=== PATIENT | female | born 1950 | race Caucasian/White ===

== ENCOUNTER 2017-01-03 05:56 | Day surgery (SDC) | payer OTHER ==
[~2017-01-03] VITALS: Ht 157.5 cm; Wt 51.3 kg
[2017-01-03] VITALS (8 sets, daily range): BP systolic 116–147; BP diastolic 67–91
--- NOTE | ~2017-01-03 | S ---
[facility] [place] [address] [place] [address] SURGICAL PATH RPT PROCEDURE Name: ORLANDO IQBAL Room #: DEP [facility].#: [id number] Admission: 01/03/17 Date of : 46 Discharge: 01/04/17 Report #: [id number] Path Case #: [id number] PATHOLOGY REPORT COLLECTION DATE: 01/03/2017 RECEIVED DATE: 01/03/2017 SUBMITTING PHYS: Dr. Trever Rodriguez OTHER PHYS: Dr. Ely Londono SPECIMEN(S) RECEIVED: A.Right inferior parathyroid adenoma B.Left thyroid lobe and isthmus * * * * * * * * * * * * FINAL DIAGNOSIS: A. "Right inferior parathyroid adenoma," parathyroidectomy: - Hypercellular parathyroid gland weighing 140 mg. (see comment) B. "Left thyroid lobe and isthmus," thyroid lobectomy: - Thyroid gland with nodular hyperplasia with a dominant nodule measuring 2.0 cm grossly and focal fibrosis and dystrophic calcifications. - Chronic thyroiditis. (see comment) COMMENT: Within specimen A, the findings are compatible with parathyroid adenoma. Correlation with clinical history, additional laboratory, and radiographic findings is required. Within specimen B, the findings are consistent with a dominant nodule of nodular hyperplasia. A construction sales representative slide of Part B (block B7) is co-reviewed with Dr. Marysol Mota. (CLYDEW:; d/t: 01/06/17) PATHOLOGIST: Kiran Morris M.D. REPORT ELECTRONICALLY SIGNED BY: Kiran Morris M.D. DATE/TIME: 01/07/2017 09:48 * * * * * * * * * * * * GROSS PATHOLOGY: A. The specimen is received fresh labeled "Olga Iqbal - #1 right inferior parathyroid adenoma" consists of a piece of mayer tissue measuring 0.4 x 0.3 x 0.2 cm. The specimen weighed 140 mg and the specimen is bisected and frozen. There were 3 frozen section slides. B. Specimen received fresh labeled "Olga Iqbal - #2 left thyroid lobe and isthmus" consists of a lobe of thyroid that weighs 15 grams and measures 6 x 2.5 x 1.5 cm. It is oriented by Dr. Trever Rodriguez as superior, inferior, medial and lateral. The specimen is [address] [address] SURGICAL PATH RPT PROCEDURE Name: ORLANDO IQBAL [id number] Admission: 01/03/17 Date of : 46 Discharge: 01/04/17 Report #: [id number] Path Case #: [id number] inked with green ink. On serial sectioning, there is a well-circumscribed nodule that measures almost 2 x 1.5 x 1.5 cm. This nodule is present at the superior pole. Two touch preps and one frozen is done. There are two touch prep slides and one frozen section slide. The specimen is frozen and submitted in cassette B1. The frozen section is submitted in B1. The rest of the thyroid is submitted in cassettes B2-B8. The entire specimen is submitted. The specimen is inked with green ink, and the isthmus is submitted in B8. ([facility]; d/t: 01/03/2017) FROZEN SECTION DIAGNOSIS: (Kiran Morris M.D.) FSA1, parathyroid "right inferior parathyroid adenoma": - Nodular cellular parathyroid. FSB1 and touch prep, thyroid "left thyroid and isthmus", lobectomy: - Follicular lesion with focal areas of fibrosis and calcification. These findings were discussed with Dr. Trever Rodriguez, and a written report was placed on the patient's chart. ([facility]:khari; d/t: 01/03/2017) Testing performed by [facility] at [facility] [address] [place] [address] CLINICAL HISTORY: Hyperparathyroidism. INITIAL CPT CODE(S): A; 54700, 22378 B; 89698, 35574 Professional services performed by [facility] at [facility] [address] [place] [address] Technical services performed by [facility] at [address] [place] [address], [address], [place] [address]. [facility] [address] [place] [address] PHONE: [phone] DIRECTOR: Jose Luis Mejias M.D. * * * END OF REPORT * * *
--- NOTE | ~2017-01-03 | O ---
[facility] [place] [address] [address] [place] [address] OPERATIVE REPORT Name: ORLANDO IQBAL Room #: 150-4 [facility].#: [id number] Admission: 01/03/17 Attend Phys: Trever Rodriguez MD Discharge: Date of : 46 Report #: [id number] THIS REPORT FOR: //name// CC: Trever Huffman MD DATE OF SERVICE: 01/03/2017 PREOPERATIVE DIAGNOSES: 1. Hyperparathyroidism with suspected right inferior parathyroid adenoma. 2. Left thyroid mass. POSTOPERATIVE DIAGNOSES: 1. Hyperparathyroidism with right inferior parathyroid adenoma. 2. Left thyroid mass. OPERATION: 1. Gamma guided parathyroidectomy with intraoperative PTH monitoring. 2. Intraoperative nerve monitoring (NIMs). 3. Left thyroid lobectomy and isthmusectomy. SURGEON: Trever Rodriguez MD. FREEZER WORKER: MIYA Fernandez and MIYA Cantu. ANESTHESIA: General. DESCRIPTION OF PROCEDURE: The patient was taken to nuclear medicine and the radiologist injected for the gamma guided procedure. The patient was brought to the operating room for a general endotracheal anesthesia using the NIMs endotracheal tube for nerve monitoring during the procedure. The patient was in the supine position with both arms tucked and protected. The upper chest and neck were widely prepped with ChloraPrep solution. Sterile drapes were applied. A short transverse cervical collar incision was made along the skin crease. I had already performed gamma probe interrogation of the neck and I confirmed the presence of a persistent hotspot on the right inferior location as expected. The incision was carried down through the skin and platysma. The skin flaps were developed superiorly and inferiorly. The fascia was divided in the midline and the strap muscles were retracted laterally. The right thyroid lobe looked and felt normal. There was no evidence of lymphadenopathy on either side of the neck. The right lobe was mobilized. The inferior thyroid artery and recurrent laryngeal nerve were identified and protected from harm. I utilized the NIMs device to verify location and function of the recurrent nerve on both sides of the neck, both during and after the dissection. We found a normal right [facility] [address] [place] [address] OPERATIVE REPORT Name: FARIDAORLANDO L Room #: 150-4 [facility].#: [id number] Admission: 01/03/17 Attend Phys: Trever Rodriguez MD Discharge: Date of : 46 Report #: [id number] superior parathyroid gland. We found a right inferior parathyroid adenoma in the expected location and it had radioactivity focally as expected. The right inferior parathyroid adenoma was carefully dissected, controlling the blood supply using Harmonic scalpel. The specimen was given to the pathologist who found a parathyroid adenoma, which weighed 140 mg and was consistent with a parathyroid adenoma. The 10-minute post-resection PTH level was 23, which was well below the preop PTH level of 105 in the holding area. Hemostasis was excellent on the right side of the neck. Next, the left thyroid lobe was mobilized, controlling the middle thyroid veins using Harmonic scalpel. The left inferior thyroid artery and recurrent laryngeal nerve were identified and protected from harm. Again, I used the NIMs device to verify location and function of the nerve both during and after dissection. There was a moderately large left thyroid mass in the upper pole, which was carefully mobilized along with the left lobe. We found 2 normal parathyroid glands on the left side which were left alone. The isthmus was divided just to the right of the midline and dissected off of the trachea. The left thyroid lobe was resected, controlling the blood supply using Harmonic scalpel. The superior pole was mobilized and controlled using Harmonic scalpel with care being taken to avoid injury to the external branch of the superior laryngeal nerve. The left lobe and isthmus were given to the pathologist who performed frozen section, which revealed a benign appearing follicular lesion. She did not see any evidence of cancer on frozen section. Hemostasis was carefully obtained on both sides of the neck. The sponge, instrument and needle counts were reported as correct. The incision was closed using running 3-0 Vicryl for the midline fascia, interrupted 3-0 Vicryl for the platysma, and running 4-0 PDS for the subcuticular layer. It should be noted that I found 2 normal parathyroid glands on the left side. Sterile dressings were applied and the patient was taken to recovery in satisfactory condition. Estimated blood loss was less than 20 mL. By: [id number] Trever Rodriguez MD /chel
--- NOTE | ~2017-01-03 | EKG ---
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
[~2017-01-03 05:56] MED LIST: COSOPT EYE DROPS5 ML OPHTHALMIC; FIBER GUMMIES1 EACH PO; LUMIGAN2.5 M1 OP; PROBIOTIC1 EAC1 PO; VITAMIN D31000 UNI2 PO
[2017-01-03 07:31] LABS: HEMATOCRIT 38.1 % (37.0-47.0); HEMOGLOBIN 13.2 gm/dL (12.0-15.0); MCH 33.3 pg (26.0-34.0); MCHC 34.6 g/dL (28.0-37.0); MCV 96.3 fL (80.0-100.0); RBC 3.96 mil/uL (4.20-5.00); RDW 12.8 % (10.5-14.5); WBC 5.3 thou/uL (4.0-11.0)
[2017-01-03 07:45] LABS: APTT 28.1 Seconds (24.5-32.8); INR 1.1; PROTIME 11.2 Seconds (9.3-11.4)
[2017-01-03 07:48] LABS: CALCIUM 9.4 mg/dL (8.5-10.1); CREATININE 0.9 mg/dL (0.6-1.0); POTASSIUM 3.8 mmol/L (3.5-5.1)
[2017-01-03 07:51] LABS: ALBUMIN 3.6 g/dL (3.4-5.0); TOTAL BILIRUBIN 1.1 mg/dL (<0.1-1.0); TOTAL PROTEIN 6.7 g/dL (6.4-8.2)
[2017-01-03 09:29] LABS: CALCIUM 9.4 mg/dL (8.5-10.1); CREATININE 0.9 mg/dL (0.6-1.0)
[2017-01-03 09:39] LABS: PHOSPHORUS 4.1 mg/dL (2.5-4.9)
[2017-01-04 08:39] VITALS: BP 130/59
[2017-01-04] MEDS ORDERED: PERCOCET PO (13:03)
[2017-01-04 13:16] VITALS: BP 130/59
== END 2017-01-04 13:30 ==
LOC: OR 05:56 → TBA 05:56 → OR 12:47 → PRE 13:49 → EDSTATUS 13:51 → 5S 15:25 → OR 01-04 13:30
PROVIDERS: Specialist
DX: E21.3 Hyperparathyroidism, unspecified (principal); E04.9 Nontoxic goiter, unspecified; D35.1 Benign neoplasm of parathyroid gland
CPT/HCPCS: 50010; 50101; 50386; 50403; 52190; 52220; 56524; 56526; 56639; 62110; 62900; 70005

== ENCOUNTER → 2019-04-27 | Outpatient (CLI) | payer OTHER ==
[~2019-04-27] VITALS: Ht 157.5 cm; Wt 53.5 kg
[~2019-04-27] MED LIST changes: +ARIMIDEX1 MG PO; +BRIMONIDINE 0.110 ML OPHTHALMIC; +IBUPROFEN 200200 M1 PO; +IBUPROFEN 400400 M2 PO; +PERCOCET PO; +TUMS PO
[2019-04-27 10:48] VITALS: BP 135/79
--- NOTE | 2019-04-27 11:15 | NUR ---
Pain Clinic Assessment: 1. History of Osteoarthritis: BACK History of Rheumatoid Arthritis: Not Applicable 2. Height: 5 ft. 2 in. 157.5 cm. Weight: 118.0 lb. oz. 53.524 kg. Patient's BMI: 21.6 3. Vital Signs: BP: 135/79 Pulse: 65 Resp: 16 Temp: 02 Sat: 100 ECG Mon: 4. Pain Intensity: 1-2 5. Fall Risk: Dizziness: N Needs help standing or walking: N Fallen in the last 3 months: N Fall risk comments: 6. Patient on Blood Thinner: None 7. History of Hypertension: N 8. Opioid Therapy greater than 6 weeks: N Opiate Contract Signed: 9. Risk Assessment Tool Provided: LOW RISK 0/3 10. Functional Assessment Tool: 11. Recreational Drug Use: Never Drug Type: Tobacco Use: Never Smoker Tobacco Type: Amount or Packs/day: How Many Years: Alcohol Use: Yes Frequency: Daily Quant: 1.5
--- NOTE | 2019-04-28 08:14 | HPC ---
[facility] [place] [address] PAIN MANAGEMENT CONSULTATION Name: ORLANDO IQBAL Room #: REG Martha [facility]ala.#: [id number] Admission: 04/27/19 Attend Phys: Mo Waller DO Discharge: Date of : 46 Report #: [id number] THIS REPORT FOR: //name// CC: ELEAZAR Huffman REFERRING PHYSICIAN: Dr. Eleazar Lugo with Neurosurgery. HISTORY OF PRESENT ILLNESS: As you know, the patient is a 68-year-old female who reports longstanding history of low back pain and mainly left lower extremity pain with paresthesias. The patient states the pain began somewhere in 2016. She denies specific injury or trauma that may have led to symptom occurrence. She has sought evaluation from her primary care physician who then referred the patient to Orthopedics with concern of left hip dysfunction. The patient apparently was ruled out from a left hip pathology and the physician at that clinic advised the patient that she is probably suffering from lumbar radiculopathy. The patient was then sent to see pain management who ordered a recent MRI, which showed changes significant enough that she was then referred to Neurosurgery. Neurosurgery saw the patient in regards to lumbar radiculopathy, where they discussed the severe central canal stenosis at L4-L5 level and the changes therein. She was advised to discuss treatment options with us. Surgery was indicating that she would be an excellent candidate for decompressive laminectomy with fusion. She has been referred to our clinic to discuss treatment options from a more conservative standpoint. The patient indicates pain is intermittent today, describes the pain as cramping, aching, pulling, gnawing, numbness and tingling. Places current pain score 3-4/10, daily average at 5-8/10, worst pain has been is 10+/10. The patient states pain is exacerbated with walking, standing or sitting any length of time. Pain is improved with "leaning over", sitting, lying down and physical therapy. She is currently in physical therapy and does note improvement in symptoms. She indicates no specific injury or trauma that may have led to symptom occurrence. The pain began in 2015. Originally was more of a nuisance, but now has become debilitating. She has been referred to our service to discuss treatment options for lumbar radiculopathy secondary to severe central canal stenosis at the L4-L5 level. PAST MEDICAL HISTORY: 1. Scarlet fever. 2. Degenerative joint disease. 3. Osteoarthritis. 4. Breast cancer. 5. Hypothyroidism. PAST SURGICAL HISTORY: 1. Left hemithyroidectomy and removal of [place] [address] PAIN MANAGEMENT CONSULTATION Name: ORLANDO IQBAL Room #: REG DENIS Huffman#: [id number] Admission: 04/27/19 Attend Phys: Mo Waller DO Discharge: Date of : 46 Report #: [id number] 2. Trabeculoplasty, bilateral eyes. 3. Placement of Mini Express shunt in the left eye. 4. Right breast lumpectomy. SOCIAL HISTORY: The patient denies tobacco, IV or illicit drug use. Admits to 1.5 alcohol beverages per day. 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 She is retired, but continues to do her some work. She has been out of work force for 2 years officially. She is not derrick worker's compensation nor is she trying to obtain disability benefits. She is not in litigation in regards to pain. ALLERGIES: NO KNOWN DRUG ALLERGIES. CURRENT MEDICATIONS: Arimidex 1 mg once a day, calcium carbonate 1 tab per day, ibuprofen 400 mg 3 times a day, probiotic 1 tab per day, vitamin D3 1000 units per day, Lumigan one drop each eye per day, Cosopt 1 drop each eye per day. IMAGING: MRI lumbar spine obtained 11/12/2018 shows T12-L1, L1-L2, L2-L3 with moderate degenerative disk disease, [id number] facet arthropathy. No significant central canal neural foraminal stenosis. L3-L4, moderate broad-based disk bulge hypertrophy, ligamentum flavum, moderate spinal canal stenosis with canal measuring only 7 mm, moderate narrowing of the lateral recesses, mild bilateral neural foraminal narrowing. L4-L5 severe facet arthropathy, worse on the left, moderate broad-based disk bulge, hypertrophy of the ligamentum flavum, central canal narrowed to 4 mm. Complete effacement of the ventral thecal sac and posterior thecal sac, moderate narrowing of the right lateral recess. Severe left neural foraminal narrowing, L5-S1, moderate degenerative changes, [id number] facet arthropathy, mild broad-based disk bulge, no central canal, mild neural foraminal stenosis. PHYSICAL EXAMINATION: VITAL SIGNS: Blood pressure 135/79, pulse is 65, respiratory rate 16 and unlabored. She is 100% on room air. Height 5 feet 2 inches tall, weight 118 pounds, BMI calculated 21.6. GENERAL: Well-developed, well-nourished, well-hydrated 68-year-old female, appears her stated age. Current pain score 1-2/10. HEENT: Normocephalic, atraumatic. Pupils equal, round, reactive to light. Extraocular muscles are intact. Sclerae nonicteric without injection. NEUROLOGIC: Cranial nerves 2-12 grossly intact. Speech fluent. The patient deemed is a good historian. LUNGS: Clear, no wheeze, rhonchi or rales. CARDIOVASCULAR: Regular. No appreciable gallop, no rub. ABDOMEN: Soft, nontender, nondistended, normoactive bowel sounds. EXTREMITIES: Show no clubbing, no cyanosis, and no edema. MUSCULOSKELETAL: Lower extremity strength equal and symmetrical 5/5. Slight giveaway strength noted with hip flexion, knee extension on the left when [facility] [address] [place] [address] PAIN MANAGEMENT CONSULTATION Name: ORLANDO IQBAL Room #: [facility].#: [id number] Admission: 04/27/19 Attend Phys: Mo Waller DO Discharge: Date of : 46 Report #: [id number] compared to the right due to increasing overall pain. Muscle tone is equal and symmetrical 5/5. Reflexes are equal and symmetrical at the patella and Achilles, 2+/4. Tactile sensation is normal from L1 through S2 dermatomes. Seated straight leg raising negative. Supine straight leg raising positive on the left. Prashant's test negative. Gait is tandem. ASSESSMENT: 1. Symptomatic lumbar radiculopathy. 2. Severe spinal stenosis of lumbar spine. 3. Displacement of lumbar intervertebral disk with radiculopathy. 4. Lumbosacral spondylosis with radiculopathy. 5. Neural foraminal stenosis. 6. Facet arthropathy of the lumbar spine. 7. Lumbar degeneration. 8. Chronic intractable pain. PLAN: 1. The patient has been referred to our service to discuss treatment options for lumbar radicular symptoms secondary to the severe spinal stenosis noted at the L4-L5 level. The patient was seen at [facility] where she was advised surgical options may be necessary given the extent of spinal stenosis at the L4-L5 level with reduction of the canal to 4 mm. The patient had requested conservative treatment options initially and the patient was then subsequently referred to our clinic. She has been referred to our clinic to discuss the more conservative treatment options available for lumbar radicular symptoms. The following was discussed with the patient today. 2. We discussed physical therapy, stretching exercise, core strengthening and any type of traction or distraction techniques that may be beneficial. We discussed medication management using neuropathic pain medications and consistent anti-inflammatory medication. We discussed epidural injections for which the patient was referred to our clinic. We also discussed spinal cord stimulator therapy and ultimately surgical decompression and fusion. After reviewing the risks and benefits of all the proposed treatment options, the patient chose to consider a lumbar epidural injection under fluoroscopic guidance. 3. The patient was advised third alliance party payer restrictions require that authorization be obtained before the patient could undergo a lumbar epidural injection. Authorization could take anywhere from 4-7 working days. We will contact the patient once we have this authorization available, so she could undergo the injection. She is requesting that the injection be provided on 05/11/2019 or 05/12/2019. She has time off at that point to recover from the procedure. We will get the authorization and schedule that for free of the 05/11/2019 or 05/12/2019 if possible. 4. We did discuss possibility of adding medication changes today. The patient will consider these options, but does not wish to make any medication changes at this visit. [facility] [address] [place] [address] PAIN MANAGEMENT CONSULTATION Name: ORLANDO IQBAL Room #: REG DENIS Huffman#: [id number] Admission: 04/27/19 Attend Phys: Mo Waller DO Discharge: Date of : 46 Report #: [id number] 5. We will see the patient back in followup visit once we have achieved authorization to undergo a lumbar epidural injection. We will contact the patient once this authorization has been obtained and confirmed the date. She wishes to undergo this procedure whether this be the 05/11/2019 or 05/12/2019. 6. I wish to thank nurse practitioner, Tracey Lugo for the opportunity to see this patient in consultation. We will keep you apprised of her response to treatment as we address her lumbar radicular symptoms secondary to severe spinal stenosis. Again, we wish to thank nurse practitioner, Parish for the opportunity to see the patient in consultation. <ELECTRONICALLY SIGNED> By: Mo Waller DO 04/28/19 0814 1251 0123 Mo Waller DO /nt
== END ==
LOC: PAIN 06:54
DX: M47.26 Other spondylosis with radiculopathy, lumbar region (principal); E03.9 Hypothyroidism, unspecified; M48.061 Spinal stenosis, lumbar region without neurogenic claudication; M51.16 Intervertebral disc disorders with radiculopathy, lumbar region; M12.88 Other specific arthropathies, not elsewhere classified, other specified site; G89.4 Chronic pain syndrome; Z79.899 Other long term (current) drug therapy

== ENCOUNTER → 2019-05-11 | Outpatient (CLI) | payer OTHER ==
[~2019-05-11] VITALS: Ht 157.5 cm; Wt 55.4 kg
--- NOTE | ~2019-05-11 | HPC ---
[facility] [address] [place] [address] PAIN MANAGEMENT CONSULTATION Name: ORLANDO IQBAL Room #: REG [facility] Lucy.#: [id number] Admission: 05/11/19 Attend Phys: Mo Waller DO Discharge: Date of : 46 Report #: [id number] THIS REPORT FOR: //name// CC: Mo Huffman DATE OF SERVICE: 05/11/2019 REFERRING PHYSICIAN: Royce Terrazas MD CHIEF COMPLAINT: Low back pain, left lower extremity pain with paresthesias. HISTORY OF PRESENT ILLNESS: As you know, the patient is a 69-year-old female who has returned today in followup visit having received preauthorization to undergo a lumbar epidural injection under fluoroscopic guidance per the request of the referring nurse practitioner, Subhash Lugo with [facility]. She returns today to undergo this epidural injection in hopes of improving pain. She was diagnosed at our visit of 04/27/2019 with symptomatic lumbar radiculopathy secondary to severe and progressively worsening spinal stenosis. The spinal stenosis was noted to be multifactorial due to facet changes and degenerative disk changes. She was established on today's appointment to undergo the first in a series of lumbar epidural injections per the request of the Neurosurgery team in hopes of improving pain. She does not have a definitive date for surgery, but has begun that discussion. She returns to undergo lumbar epidural injection under fluoroscopic guidance. ALLERGIES: No known drug allergies. CURRENT MEDICATIONS: Arimidex, calcium carbonate, ibuprofen, probiotic, vitamin D3, Lumigan, Cosopt. SOCIAL HISTORY: The patient denies tobacco, IV or illicit drug use. Admits to 1.5 alcohol beverages per day. She is unaccompanied today. IMAGING: No new imaging available. PHYSICAL EXAMINATION: VITAL SIGNS: Blood pressure 136/87, pulse 82, respiratory rate 14 and unlabored. The patient is 100% on room air. Height 5 feet 2 inches tall, weight 122.2 pounds, BMI calculated 22.3. GENERAL: Well-developed, well-nourished, well-hydrated 69-year-old female, appearing stated age, placing current pain score at 4-5/10. HEENT: Normocephalic, atraumatic. Pupils equal, round, reactive to light. EXTREMITIES: Show no clubbing, no cyanosis, and no edema. MUSCULOSKELETAL: Lower extremity strength equal and symmetrical again today, [facility] [address] [place] [address] PAIN MANAGEMENT CONSULTATION Name: ORLANDO IQBAL Room #: REG [facility]#: [id number] Admission: 05/11/19 Attend Phys: Mo Waller DO Discharge: Date of : 46 Report #: [id number] /[id number]. Slight giveaway strength noted with hip flexion, knee extension on the left. Seated straight leg raising positive on the left. Supine straight leg raising positive on the left. NERY'S test is negative. Gait appears tandem. ASSESSMENT: 1. Lumbar radiculopathy. 2. Severe central canal stenosis of the lumbar spine. 3. Displacement of lumbar intervertebral disk with radiculopathy. 4. Lumbosacral spondylosis with radiculopathy. 5. Neuroforaminal stenosis of lumbar spine. 6. Facet arthropathy of the lumbar spine. 7. Lumbar degeneration. 8. Chronic intractable pain. PLAN: 1. The patient has returned today in followup visit having received authorization to undergo the first in a series of lumbar epidural injections under fluoroscopic guidance. We have advised the patient of the risks and the benefits of a lumbar epidural injection. These risks include but are not necessarily limited to bleeding, bruising, infection, worsening pain, no relief of pain, also risk of temporary or permanent muscle weakness, temporary or permanent nerve damage, possible paralysis, post-dural puncture headache and . The patient states she understood and wished to proceed. 2. No medication changes made at today's visit. The patient will continue current medical therapy as previously prescribed. 3. We will see the patient back in followup visit on an as needed basis for possible next in the series of lumbar epidural injections under fluoroscopic guidance. I did advise the patient upon our return visit, we will discuss the efficacy of today's procedure. If it is recommended that the patient move on with the next in the series of epidural injections, we will then begin that prior authorization process. We have received authorization for 1 epidural injection to be performed today. DESCRIPTION OF PROCEDURE: L5-S1 left parasagittal epidural steroid injection under fluoroscopic guidance. This is the first procedure of the first series that the patient is undergoing. After obtaining written consent, the patient was taken back to the fluoroscopy suite, placed in a prone position with pillow under the abdomen to decrease lumbar lordosis. The skin overlying the lumbosacral area was then prepped and draped in aseptic fashion. The L5-S1 vertebral interspace was then identified by AP fluoroscopy. The skin and subcutaneous tissue overlying the target site of injection was anesthetized with 3 mL 1% lidocaine. A 20-gauge 3-1/2-inch Tuohy needle was then advanced under fluoroscopic guidance [address] [address] PAIN MANAGEMENT CONSULTATION Name: ORLANDO IQBAL Room #: REG [facility]#: [id number] Admission: 05/11/19 Attend Phys: Mo Waller DO Discharge: Date of : 48 Report #: [id number] towards the epidural space using a left parasagittal approach. The epidural space was identified using loss of resistance to air technique. After negative aspiration for heme or cerebrospinal fluid, a total of 1 mL of Omnipaque was injected. A lumbar epidurogram was confirmed using both AP and lateral fluoroscopy. After negative aspiration for heme or cerebrospinal fluid, 5 mL of a solution containing 2 mL of 40 mg/mL, 80 mg total triamcinolone, and 3 mL of lidocaine 1% was injected in increments. Contrast spread was noted post-epidural space. The needle was then retracted approximately half way and needle tract flushed with 1 mL of 1% lidocaine. Needle was then removed. There were no apparent sensory or motor deficits in the lower extremity following the procedure. A sterile bandage was placed over the injection site. The heart rate, pulse, oximetry and blood pressure were continuously monitored after the procedure. There were no apparent complications. The patient tolerated the procedure well and was carefully escorted to the recovery room in stable condition. There were no apparent complications. After meeting discharge criteria, the patient was then discharged home. By: [id number] Mo Waller DO /nt
[2019-05-11 13:01] VITALS: BP 136/87
--- NOTE | 2019-05-11 13:09 | NUR ---
Pain Clinic Assessment: 1. History of Osteoarthritis: BACK History of Rheumatoid Arthritis: Not Applicable 2. Height: 5 ft. 2 in. 157.5 cm. Weight: 122.2 lb. oz. 55.429 kg. Patient's BMI: 22.3 3. Vital Signs: BP: 136/87 Pulse: 82 Resp: 14 Temp: 02 Sat: 10 ECG Mon: 4. Pain Intensity: 4-5 5. Fall Risk: Dizziness: N Needs help standing or walking: N Fallen in the last 3 months: N Fall risk comments: 6. Patient on Blood Thinner: None 7. History of Hypertension: N 8. Opioid Therapy greater than 6 weeks: N Opiate Contract Signed: 9. Risk Assessment Tool Provided: LOW RISK 0/3 10. Functional Assessment Tool: 11. Recreational Drug Use: Never Drug Type: Tobacco Use: Never Smoker Tobacco Type: Amount or Packs/day: How Many Years: Alcohol Use: Yes Frequency: Daily Quant: 1-2
== END | disposition home or self-care (01) ==
LOC: PAIN 06:56
DX: M51.16 Intervertebral disc disorders with radiculopathy, lumbar region (principal); M47.27 Other spondylosis with radiculopathy, lumbosacral region; M48.061 Spinal stenosis, lumbar region without neurogenic claudication; M47.26 Other spondylosis with radiculopathy, lumbar region; G89.29 Other chronic pain; Z79.899 Other long term (current) drug therapy

== ENCOUNTER → 2019-06-23 | Outpatient (CLI) | payer OTHER ==
[~2019-06-23] VITALS: Ht 157.5 cm; Wt 53.8 kg
[~2019-06-23] MED LIST changes: +MEDROLDOSEPACK PO; +ULTRAM 50MG TAB50 MG PO
[2019-06-23 11:07] VITALS: BP 138/87
--- NOTE | 2019-06-23 11:22 | NUR ---
Pain Clinic Assessment: 1. History of Osteoarthritis: BACK History of Rheumatoid Arthritis: Not Applicable 2. Height: 5 ft. 2 in. 157.5 cm. Weight: 118.6 lb. oz. 53.796 kg. Patient's BMI: 21.7 3. Vital Signs: BP: 138/87 Pulse: 75 Resp: 14 Temp: 02 Sat: 100 ECG Mon: 4. Pain Intensity: 0 5. Fall Risk: Dizziness: N Needs help standing or walking: N Fallen in the last 3 months: N Fall risk comments: 6. Patient on Blood Thinner: None 7. History of Hypertension: N 8. Opioid Therapy greater than 6 weeks: N Opiate Contract Signed: 9. Risk Assessment Tool Provided: LOW RISK 0 10. Functional Assessment Tool: 11. Recreational Drug Use: Never Drug Type: Tobacco Use: Never Smoker Tobacco Type: Amount or Packs/day: How Many Years: Alcohol Use: Yes Frequency: Quant:
--- NOTE | 2019-07-06 07:57 | HPC ---
[facility] [address] [address] PAIN MANAGEMENT CONSULTATION Name: ORLANDO IQBAL Room #: REG [facility].#: [id number] Admission: 06/23/19 Attend Phys: Mo Waller DO Discharge: Date of : 46 Report #: [id number] THIS REPORT FOR: //name// CC: BERENICE Huffman DATE OF SERVICE: 06/23/2019 CHIEF COMPLAINT: Low back pain, left lower extremity pain with paresthesias. HISTORY OF PRESENT ILLNESS: As you know, the patient is a 69-year-old female who returns today in followup visit to begin the prior authorization process to undergo next in the series of lumbar epidural injections under fluoroscopic guidance. She is also requesting adjustments in medication management as she is planning a trip to [place] in the next couple of weeks. She is concerned at this point that her pain may return, wishing to address the potential recurrence of symptoms with an epidural injection and medication management. She denies new injury or trauma that may have caused continuation of pain. ALLERGIES: No known drug allergies. CURRENT MEDICATIONS: Arimidex, calcium carbonate, ibuprofen, probiotics, vitamin D3, Lumigan and Cosopt. SOCIAL HISTORY: The patient denies tobacco, IV or illicit drug use. Admits to one and half alcohol beverages per day. She is unaccompanied at today's visit. IMAGING: No new imaging available. PHYSICAL EXAMINATION: VITAL SIGNS: Blood pressure 138/87, pulse is 75, respiratory rate 14 and unlabored. The patient is 100% on room air. Height 5 feet 2 inches tall, weight 118.6 pounds, BMI calculated 21.7. GENERAL: Well-developed, well-nourished, well-hydrated 69-year-old female, appearing stated age, pain is rated today 0/10. HEENT: Normocephalic, atraumatic. Pupils equal, round, reactive to light. EXTREMITIES: Show no clubbing, no cyanosis, no edema. MUSCULOSKELETAL: Strength in the lower extremities, equal and symmetrical 5/5. There is no giveaway strength noted with any of the maneuvers today. Seated straight leg raising is negative. Supine straight leg raising positive on the left. Prashant's test is negative. Gait appears tandem and normal. Stance normal. ASSESSMENT: 1. Symptomatic lumbar radiculopathy. [address] [address] PAIN MANAGEMENT CONSULTATION Name: ORLANDO IQBAL Room #: REG DENIS Huffman#: [id number] Admission: 06/23/19 Attend Phys: Mo Waller DO Discharge: Date of : 46 Report #: [id number] 2. Severe central canal stenosis of lumbar spine. 3. Displacement of lumbar intervertebral disk with radiculopathy. 4. Lumbosacral spondylosis with radiculopathy. 5. Neural foraminal stenosis of lumbar spine. 6. Facet arthropathy of the lumbar spine. 7. Lumbar degeneration. 8. Chronic intractable pain. PLAN: 1. The patient returns today in followup visit having noted good benefit with previous injection. She reports injection has given 100% improvement in overall pain that is ongoing. She has plans for a trip to [place] in the next couple of weeks and is requesting medications to be provided in case her symptoms do return. We have agreed to provide the patient with adjustments in medications for this trip with the understanding that they will be used only as necessary. She is agreeable with that plan. 2. We have provided the patient with a prescription of Medrol Dosepak. She would initiate the pack as directed. If her pain intensifies to a level of intolerable, she is not to utilize the medication prophylactically. She was given this Medrol Dosepak for pain control while on her trip. Prescription was provided to the patient in written form. 3. The patient was provided a prescription of tramadol 50 mg dose 1 tab q.i.d. p.r.n. pain. I have given the patient #60 tablets. The patient was advised to watch for side effects of sleepiness, disorientation, confusion, mental slowing and constipation with its use. She will only use this medication on an as needed basis. 4. We will begin the authorization process for the patient to have next in the series of lumbar epidural injections. We are pleased to see the patient has done well with the initial injection, but we will be available to see her back to undergo the next in the series if necessary. She has done very well with that initial epidural injection. We are hopeful this will be an ongoing improvement in symptoms, but will be available to see her back for the next in the series of epidural injections. <ELECTRONICALLY SIGNED> By: Mo Waller DO 07/06/19 0757 [id number] Mo Waller DO /nt
== END | disposition home or self-care (01) ==
LOC: PAIN 07:04
DX: M54.5 Low back pain (principal); M51.16 Intervertebral disc disorders with radiculopathy, lumbar region; M47.27 Other spondylosis with radiculopathy, lumbosacral region; M48.061 Spinal stenosis, lumbar region without neurogenic claudication; M47.26 Other spondylosis with radiculopathy, lumbar region; G89.29 Other chronic pain

== ENCOUNTER → 2019-10-13 | Outpatient (CLI) | payer OTHER ==
[~2019-10-13] VITALS: Ht 157.5 cm; Wt 55.4 kg
[~2019-10-13] MED LIST changes: +IBUPROFEN 400400 M1 PO; +OYSTER SHELL C500 MG PO; -TUMS PO
[2019-10-13 12:32] VITALS: BP 123/76
--- NOTE | 2019-10-13 12:45 | NUR ---
Pain Clinic Assessment: 1. History of Osteoarthritis: BACK History of Rheumatoid Arthritis: Not Applicable 2. Height: 5 ft. 2 in. 157.5 cm. Weight: 122.2 lb. oz. 55.429 kg. Patient's BMI: 22.3 3. Vital Signs: BP: 123/76 Pulse: 70 Resp: 14 Temp: 02 Sat: 100 ECG Mon: 4. Pain Intensity: 5-7 5. Fall Risk: Dizziness: N Needs help standing or walking: N Fallen in the last 3 months: N Fall risk comments: 6. Patient on Blood Thinner: None 7. History of Hypertension: N 8. Opioid Therapy greater than 6 weeks: N Opiate Contract Signed: 9. Risk Assessment Tool Provided: LOW RISK 0 10. Functional Assessment Tool: 11. Recreational Drug Use: Never Drug Type: Tobacco Use: Never Smoker Tobacco Type: Amount or Packs/day: How Many Years: Alcohol Use: Yes Frequency: Quant:
--- NOTE | 2019-10-15 07:46 | HPC ---
[facility] [address] [place] [address] PAIN MANAGEMENT CONSULTATION Name: ORLANDO IQBAL [id number] Admission: 10/13/19 Attend Phys: Mo Waller DO Discharge: Date of : 46 Report #: [id number] THIS REPORT FOR: //name// CC: BERENICE Huffman DATE OF SERVICE: 10/13/2019 REFERRING PHYSICIAN: Berenice Terrazas MD CHIEF COMPLAINT: Low back pain, left lower extremity pain and paresthesias. HISTORY OF PRESENT ILLNESS: As you know, the patient is a very pleasant 69-year-old female who has returned today in followup visit to undergo a lumbar epidural injection under fluoroscopic guidance. The patient places current pain score 5-7/10. She has returned from her trip to [place] and has been experiencing increasing pain. She denies any specific injury or trauma. She describes the pain as chronic in nature, aching, gnawing, sharp, numbness and tingling when describing the symptoms themselves. She states that walking and standing exacerbate symptoms, medications and leaning over, sitting and lying down tends to improve pain. The patient has returned today in followup visit to undergo a lumbar epidural injection under fluoroscopic guidance in hopes of improving lumbar radicular symptoms. ALLERGIES: No known drug allergies. CURRENT MEDICATIONS: Ibuprofen 400 mg every 6 hours, Arimidex 1 mg once a day, calcium carbonate 1 tab per day, lactobacillus 1 tab per day, cholecalciferol 1000 units per day, Lumigan 1 drop each eye per day, brimonidine/____ 1 drop per day. IMAGING: No new imaging available. PHYSICAL EXAMINATION: VITAL SIGNS: Blood pressure 123/76, pulse is 70, respiratory rate 14 and unlabored. The patient is 100% on room air. Height 5 feet 2 inches tall, weight 122.2 pounds, BMI calculated 22.3. GENERAL: Well-developed, well-nourished, well-hydrated 69-year-old female appearing stated age, placing current pain score 5-7/10. HEENT: Normocephalic, atraumatic. Pupils equal, round, reactive to light. Speech fluent. EXTREMITIES: Show no clubbing, no cyanosis, and no edema. MUSCULOSKELETAL: Lower extremity strength appears equal and symmetrical today 5/5. Muscle bulk and tone equal and symmetrical in comparing left lower extremity to right. Seated straight leg raising negative. Supine straight leg [facility] [address] [place] [address] PAIN MANAGEMENT CONSULTATION Name: ORLANDO IQBAL [id number] Admission: 10/13/19 Attend Phys: Mo Waller DO Discharge: Date of : 46 Report #: [id number] raising positive on the left at approximately 60 degree angle. Ankle clonus negative. Babinski is negative. Gait is slightly antalgic favoring left lower extremity over right. She can tandem walk, heel walk and toe walk. Stance appears normal with normal lordotic curvature. ASSESSMENT: 1. Symptomatic lumbar radiculopathy. 2. Severe central canal stenosis of lumbar spine. 3. Lumbosacral spondylosis with radiculopathy. 4. Neural foraminal stenosis of the lumbar spine. 5. Facet arthropathy of the lumbar spine. 6. Lumbar degeneration. 7. Chronic intractable pain. PLAN: 1. The patient returns today in followup visit requesting to undergo a lumbar epidural injection under fluoroscopic guidance. The patient was advised that due to third constitution party payer restrictions, authorization would have to be obtained before the patient could undergo the epidural injection. Authorization could take anywhere from 4-7 working days. We will begin this process immediately. We have tentatively placed the patient's appointment for next week to undergo the procedure, but if we do receive this authorization earlier, we will have the patient return to our clinic as quickly as possible. We will keep the patient apprised of OUR progress of obtaining the authorization for the patient to undergo the procedure. 2. The patient has yet to return to see Dr. Terrazas. He has requested that the patient try the epidurals initially before surgical options would be entertained more fully. We are hopeful the patient will get the relief of symptoms that we believe could occur with the epidural injection, and she sees good and prolonged benefit. We will keep Dr. Terrazas apprised of the response to the requested epidural injections once we have begun the process. 3. No medication changes made at today's visit. The patient will continue current medical therapy as prior prescribed. 4. We will see the patient back in followup visit once we have achieved authorization for the patient to undergo a lumbar epidural injection under fluoroscopic guidance per the request of her neurosurgeon. <ELECTRONICALLY SIGNED> By: Mo Waller DO 10/15/19 0746 [id number] Mo Waller DO /nt
== END ==
LOC: PAIN 07:00
DX: M47.27 Other spondylosis with radiculopathy, lumbosacral region (principal); G89.4 Chronic pain syndrome; M48.07 Spinal stenosis, lumbosacral region; Z79.899 Other long term (current) drug therapy

== ENCOUNTER → 2019-10-20 | Outpatient (CLI) | payer OTHER ==
[~2019-10-20] VITALS: Ht 157.5 cm; Wt 55.3 kg
[2019-10-20 14:54] VITALS: BP 142/95
--- NOTE | 2019-10-20 15:01 | NUR ---
Pain Clinic Assessment: 1. History of Osteoarthritis: BACK History of Rheumatoid Arthritis: Not Applicable 2. Height: 5 ft. 2 in. 157.5 cm. Weight: 122.0 lb. oz. 55.339 kg. Patient's BMI: 22.3 3. Vital Signs: BP: 142/95 Pulse: 63 Resp: 16 Temp: 02 Sat: 100 ECG Mon: 4. Pain Intensity: 2-3 5. Fall Risk: Dizziness: N Needs help standing or walking: N Fallen in the last 3 months: N Fall risk comments: 6. Patient on Blood Thinner: None 7. History of Hypertension: N 8. Opioid Therapy greater than 6 weeks: N Opiate Contract Signed: 9. Risk Assessment Tool Provided: LOW RISK 0 10. Functional Assessment Tool: 11. Recreational Drug Use: Never Drug Type: Tobacco Use: Never Smoker Tobacco Type: Amount or Packs/day: How Many Years: Alcohol Use: Yes Frequency: Daily Quant: 1
--- NOTE | 2019-10-22 07:46 | HPC ---
[address] [address] PAIN MANAGEMENT CONSULTATION Name: ORLANDO IQBAL [id number] Admission: 10/20/19 Attend Phys: Mo Waller DO Discharge: Date of : 46 Report #: [id number] THIS REPORT FOR: cc: Ely Huffman MD, Sarah M. MD Johnson, James E. DO ~ THIS REPORT FOR: //name// CC: Mo Huffman MD DATE OF SERVICE: 10/20/2019 REFERRING PHYSICIAN: Royce Terrazas MD CHIEF COMPLAINT: Low back pain, left lower extremity pain and paresthesias. HISTORY OF PRESENT ILLNESS: As you know, the patient is a very pleasant 69-year-old female who has returned today in followup visit having received authorization to undergo a lumbar epidural injection under fluoroscopic guidance. The patient is currently placing her pain score at 2-3/10. She denies injury or trauma that may have led to symptom occurrence. She was last seen in our clinic on 10/13/2019 where she was complaining of pain at 5-7/10. She has been established today's appointment for a lumbar epidural injection. We did receive authorization for the patient to undergo the procedure as part of her third constitution party payer restrictions. She indicates no new injury or trauma that may have led to symptom continuation. She states pain is exacerbated with walking and standing, improves with medications, leaning over and lying down. ALLERGIES: No known drug allergies. CURRENT MEDICATIONS: Ibuprofen, Arimidex, calcium carbonate, lactobacillus, cholecalciferol, Lumigan. SOCIAL HISTORY: The patient denies tobacco, alcohol, IV or illicit drug use. She is unaccompanied today. IMAGING: No new imaging available. PHYSICAL EXAMINATION: VITAL SIGNS: Blood pressure 142/95, pulse 63, respiratory rate 16 and unlabored. The patient is 100% on room air. Height 5 feet 2 inches tall, weight 122 pounds, BMI calculated 22.3. GENERAL: Well-developed, well-nourished, well-hydrated, mildly scoliotic [facility] [address] [place] [address] PAIN MANAGEMENT CONSULTATION Name: ORLANDO IQBAL Room #: REG [facility]#: [id number] Admission: 10/20/19 Attend Phys: Mo Waller DO Discharge: Date of : 48 Report #: [id number] 69-year-old female appearing stated age. Pain is rated anywhere from 2-3/10. HEENT: Normocephalic, atraumatic. Pupils equal, round and reactive to light. Speech fluent. EXTREMITIES: Show no clubbing, no cyanosis and no edema. MUSCULOSKELETAL: Lower extremity strength remains symmetrical 5/5. She is intact to light touch from L1 through S2 dermatomes. Seated straight leg raising negative. Supine straight leg raising positive on the left. Again, approximately 60 degree angle, ankle clonus negative, Babinski is negative. ASSESSMENT: 1. Symptomatic lumbar radiculopathy. 2. Severe central canal stenosis of lumbar spine. 3. Lumbosacral spondylosis with radiculopathy. 4. Neural foraminal stenosis of the lumbar spine. 5. Facet arthropathy of the lumbar spine. 6. Lumbar degeneration. 7. Chronic intractable pain. PLAN: 1. The patient returns today in followup visit having received authorization to undergo lumbar epidural injection under fluoroscopic guidance. She has been advised of the risks and the benefits of this procedure. These risks include but are not necessarily limited to bleeding, bruising, infection, worsening pain, no relief of pain, also risk of temporary or permanent muscle weakness, temporary or permanent nerve damage, possible paralysis, post-dural puncture headache and . The patient states understood and wished to proceed. 2. No medication changes made at today's visit. The patient will continue current medical therapy as previously prescribed. 3. We will see the patient back in followup visit on an as needed basis for possible next in the series of lumbar epidural injections. PROCEDURE NOTE DESCRIPTION OF PROCEDURE: L5-S1 left paramedian epidural steroid injection under fluoroscopic guidance. This is the first procedure of the first series that the patient is undergoing. After obtaining written consent, the patient was taken back to the fluoroscopy suite, placed in a prone position with pillow under the abdomen to decrease lumbar lordosis. The skin overlying the lumbosacral area was then prepped and draped in aseptic fashion. The L5-S1 vertebral interspace was then identified by AP fluoroscopy. The skin and subcutaneous tissue overlying the target site of injection was anesthetized with 3 mL 1% lidocaine. A 20-gauge 3.5 inch Tuohy needle was then advanced under fluoroscopic guidance [address] [address] PAIN MANAGEMENT CONSULTATION Name: ORLANDO IQBAL Room #: REG DENIS Huffman#: [id number] Admission: 10/20/19 Attend Phys: Mo Waller DO Discharge: Date of : 46 Report #: [id number] towards the epidural space using a left paramedian approach. The epidural space was identified using loss of resistance to air technique. After negative aspiration for heme or cerebrospinal fluid, a total of 1 mL of Omnipaque was injected. A lumbar epidurogram was confirmed using both AP and lateral fluoroscopy. After negative aspiration for heme or cerebrospinal fluid, 5 mL of a solution containing 2 mL 40 mg per mL, 80 mg total triamcinolone along with 3 mL of lidocaine 1% was injected in increments. Contrast spread was noted posterior epidural space. The needle was then retracted approximately half way and needle tract flushed with 1 mL of 1% lidocaine. Needle was then removed. There were no apparent sensory or motor deficits in the lower extremity following the procedure. A sterile bandage was placed over the injection site. The heart rate, pulse, oximetry and blood pressure were continuously monitored after the procedure. There were no apparent complications. The patient tolerated the procedure well and was carefully escorted to the recovery room in stable condition. There were no apparent complications. After meeting discharge criteria, the patient was then discharged home. <ELECTRONICALLY SIGNED> By: Mo Waller DO 10/22/19 0746 [id number] Mo Waller DO /nt
== END | disposition home or self-care (01) ==
LOC: PAIN 07:00
DX: M47.27 Other spondylosis with radiculopathy, lumbosacral region (principal); M48.061 Spinal stenosis, lumbar region without neurogenic claudication; M46.26 Osteomyelitis of vertebra, lumbar region; M47.26 Other spondylosis with radiculopathy, lumbar region; M51.16 Intervertebral disc disorders with radiculopathy, lumbar region; G89.29 Other chronic pain; Z98.890 Other specified postprocedural states; Z79.899 Other long term (current) drug therapy

== ENCOUNTER → 2020-06-20 | Outpatient (CLI) | payer OTHER ==
[~2020-06-20] VITALS: Ht 157.5 cm; Wt 56.2 kg
[~2020-06-20] MED LIST changes: +TIMOLOL MALEATE5 M2 RT. EYE
--- NOTE | ~2020-06-20 | HPC ---
[facility] [address] [place] [address] PAIN MANAGEMENT CONSULTATION Name: ORLANDO IQBAL Room #: REG [facility].#: [id number] Admission: 06/20/20 Attend Phys: Mo Waller DO Discharge: Date of : 46 Report #: [id number] CC: Mo Huffman MD DATE OF SERVICE: 06/20/2020 REFERRING PHYSICIAN: Royce Terrazas MD CHIEF COMPLAINT: Low back pain, left lower extremity pain and intermittent right lower extremity pain with paresthesias. HISTORY OF PRESENT ILLNESS: As you know, the patient is a very pleasant 70-year-old female who has returned today in followup visit to undergo next in the series of lumbar epidural injections to address lumbar radicular symptoms. She is placing her current pain score 5-6/10. The patient reports improvement in symptoms with the previous epidural injection of greater than 80%. This lasted for months. She returns today in followup visit, describing no new injury or trauma that may have led to symptom reoccurrence. She denies any changes in her level of activity or activities in general that may have led to symptom reoccurrence. She returns today in followup visit for the next in the series of epidural injections under fluoroscopic guidance to address lumbar radicular pain. ALLERGIES: No known drug allergies. CURRENT MEDICATIONS: Timolol, ibuprofen, Arimidex, calcium carbonate, brimonidine, FiberCon, lactobacillus, cholecalciferol, Lumigan. SOCIAL HISTORY: The patient denies tobacco, alcohol, IV or illicit drug use. She is unaccompanied at today's visit. IMAGING: No new imaging available. PQRS: The patient has arthritic changes of the thoracic and lumbar spine as well as scoliotic curvature of the lumbar spine. She denies rheumatoid arthritis. She places pain intensity 5-6/10, not a fall risk nor has she had a fall in last 3 months. She is not on blood thinners, nor is she treated for hypertension. She is not on chronic opioids, has a low opioid addiction potential based on our assessment tool. Pain impact /, [id number] interference of daily activities secondary to pain. PHYSICAL EXAMINATION: VITAL SIGNS: Blood pressure 144/90, pulse 62, respiratory rate 14 and unlabored. The patient is 100% on room air. Height 5 feet 2 inches tall, weight 123.8 pounds, BMI calculated 22.6. GENERAL: Well-developed, well-nourished, well-hydrated 70-year-old female appearing stated age, pain is rated anywhere from 5-6/10. HEENT: Normocephalic, atraumatic. Pupils equal, round and reactive. Extraocular muscles are intact. Speech fluent. EXTREMITIES: Show no clubbing, no cyanosis, no noted edema. MUSCULOSKELETAL: Seated straight leg raising negative. Supine straight leg raising remains positive on the left. Prashant's test is negative. Modified Gaenslen's positive for axial low back pain. Ankle clonus negative. Babinski is negative. ASSESSMENT: 1. Symptomatic lumbar radiculopathy. 2. Severe central canal stenosis of the lumbar spine. 3. Lumbosacral spondylosis with radiculopathy. 4. Neural foraminal stenosis of the lumbar spine. 5. Facet arthropathy of the lumbar spine. 6. Lumbar degeneration. 7. Chronic intractable pain. PLAN: 1. The patient returns today in followup visit where we have discussed at length her increasing bilateral lower extremity symptoms. This is not inconsistent with the progression of central canal stenosis. We have discussed this with the patient today. We also discussed other symptoms that she may be experiencing secondary to central canal stenosis. At this point, she is only experiencing pain and paresthesias. There have been no changes in bowel or bladder function. After a very long discussion with the patient taking over 19 minutes of time of reviewing her MRI and how it correlates to current symptoms, we then discussed treatment options we have available. After this discussion, the patient chose to undergo lumbar epidural injection under fluoroscopic guidance as she is seeing good benefit with the previous injections. The patient feels more comfortable with her findings of MRI. She was not given a full description of the findings. She feels more comfortable in the decision processing now that she has a better understanding of the findings in the lumbar region. After discussion of the findings of her MRI, she chose to undergo lumbar epidural injection under fluoroscopic guidance in hopes of gaining similar improvement as we have seen with previous injections. 2. The patient was advised risks and benefits of a lumbar epidural injection. These risks include but are not necessarily limited to; bleeding, bruising, infection, worsening of pain, no relief of pain, temporary or permanent muscle weakness, temporary or permanent nerve damage, possible paralysis and . The patient states understood and wished to proceed. 3. No medication changes made at today's visit. The patient will continue current medical therapy as prior prescribed. 4. We will see the patient back in followup visit on an as needed basis, possible next in the series of lumbar epidural injections or to discuss other treatment options if she wishes to do so. We are hopeful the patient will see good and prolonged benefit with today's epidural injection. PROCEDURE NOTE DESCRIPTION OF PROCEDURE: Interlaminar epidural steroid injection under fluoroscopic guidance. After obtaining written consent, the patient was taken back to fluoroscopy suite, placed in prone position with pillow under abdomen to decrease lumbar lordosis. Skin overlying the lumbosacral area prepped and draped in aseptic fashion. Lumbar intervertebral spaces were identified by AP fluoroscopy. Skin and subcutaneous tissue overlying the target site of injection anesthetized with 3 mL of 1% lidocaine. A 20-gauge 3-1/2 inch Tuohy needle advanced under fluoroscopic guidance towards the epidural space using a parasagittal approach. The epidural space identified using loss of resistance to air technique. After negative aspiration for heme or cerebrospinal fluid, 1 mL of Omnipaque injected. Lumbar epidurogram was confirmed using both AP and lateral fluoroscopy. After negative aspiration for heme or cerebrospinal fluid, 5 mL of a solution containing 2 mL 40 mg per mL, 80 mg total triamcinolone along with 3 mL of lidocaine 1% injected slowly. Needle then retracted snf, flushed with 1 mL of 1% lidocaine and then removed. Sterile bandage placed over injection site. No new motor deficits present in lower extremity following the procedure. The patient tolerated procedure well, carefully escorted to recovery room in stable condition. No apparent complications. After meeting discharge criteria, the patient discharged home. By: [id number] Mo Waller DO /nt
[2020-06-20 10:16] VITALS: BP 144/90
--- NOTE | 2020-06-20 10:25 | NUR ---
Pain Clinic Assessment: 1. History of Osteoarthritis: BACK History of Rheumatoid Arthritis: Not Applicable 2. Height: 5 ft. 2 in. 157.5 cm. Weight: 123.8 lb. oz. 56.155 kg. Patient's BMI: 22.6 3. Vital Signs: BP: 144/90 Pulse: 62 Resp: 14 Temp: 02 Sat: 100 ECG Mon: 4. Pain Intensity: 5-6 5. Fall Risk: Dizziness: N Needs help standing or walking: N Fallen in the last 3 months: N Fall risk comments: 6. Patient on Blood Thinner: None 7. History of Hypertension: N 8. Opioid Therapy greater than 6 weeks: N Opiate Contract Signed: 9. Risk Assessment Tool Provided: LOW RISK 0 10. Functional Assessment Tool: 11. Recreational Drug Use: Never Drug Type: Tobacco Use: Never Smoker Tobacco Type: Amount or Packs/day: How Many Years: Alcohol Use: Yes Frequency: Quant:
== END | disposition home or self-care (01) ==
LOC: PAIN 06:52
PROVIDERS: ATTEND Anesthesiology Pain Medicine
DX: M51.16 Intervertebral disc disorders with radiculopathy, lumbar region (principal); M48.061 Spinal stenosis, lumbar region without neurogenic claudication; M47.27 Other spondylosis with radiculopathy, lumbosacral region; M47.26 Other spondylosis with radiculopathy, lumbar region; G89.29 Other chronic pain; Z98.890 Other specified postprocedural states; Z79.899 Other long term (current) drug therapy

== ENCOUNTER → 2021-01-02 | Outpatient (CLI) | payer OTHER ==
[~2021-01-02] VITALS: Ht 157.5 cm; Wt 56.8 kg
[~2021-01-02] MED LIST changes: +COSOPT OCUMETER10 M1 EA. EYE; +LISINOPRIL5 MG PO
[2021-01-02 10:19] VITALS: BP 135/75
--- NOTE | 2021-01-02 10:28 | NUR ---
Pain Clinic Assessment: 1. History of Osteoarthritis: BACK History of Rheumatoid Arthritis: Not Applicable 2. Height: 5 ft. 2 in. 157.5 cm. Weight: 125.2 lb. oz. 56.790 kg. Patient's BMI: 22.9 3. Vital Signs: BP: 135/75 Pulse: 66 Resp: 16 Temp: 02 Sat: 100 ECG Mon: 4. Pain Intensity: 3 5. Fall Risk: Dizziness: N Needs help standing or walking: N Fallen in the last 3 months: N Fall risk comments: 6. Patient on Blood Thinner: None 7. History of Hypertension: Y 8. Opioid Therapy greater than 6 weeks: N Opiate Contract Signed: 9. Risk Assessment Tool Provided: LOW RISK 0 10. Functional Assessment Tool: 11. Recreational Drug Use: Never Drug Type: Tobacco Use: Never Smoker Tobacco Type: Amount or Packs/day: How Many Years: Alcohol Use: Yes Frequency: Daily Quant: 1
--- NOTE | 2021-01-08 10:03 | HPC ---
[facility] [place] [address] PAIN MANAGEMENT CONSULTATION Name: ORLANDO IQBAL [id number] Admission: 01/02/21 Attend Phys: Mo Waller DO Discharge: Date of : 46 Report #: [id number] THIS REPORT FOR: cc: Ely Huffman MD, Sarah M. MD Johnson, James E. DO ~ DATE OF SERVICE: 01/02/2021 CHIEF COMPLAINT: Low back pain, left lower extremity pain with paresthesias. HISTORY OF PRESENT ILLNESS: As you know, the patient is a very pleasant 70-year-old female returning in followup visit to undergo lumbar epidural injection under fluoroscopic guidance. The patient reports previous lumbar epidural injection gave near 100% improvement in overall pain lasting for 5 months. Unfortunately, her symptoms have begun to return. She returns today to undergo next in the series in hopes of improving symptoms. She denies new injury or trauma or any changes in medication management since her last visit that would preclude her from undergoing the injection today. ALLERGIES: No known drug allergies. CURRENT MEDICATIONS: Bimatoprost, cholecalciferol, lactobacillus, fiber gummies, calcium carbonate, Arimidex, ibuprofen, lisinopril. SOCIAL HISTORY: The patient denies tobacco, alcohol, IV or illicit drug use. She is unaccompanied today. IMAGING: No new imaging available. PHYSICAL EXAMINATION: VITAL SIGNS: Blood pressure 135/75, pulse 66, respiratory rate 16 and unlabored. The patient is 100% on room air. Height 5 feet 2 inches tall, weight 125.2 pounds, BMI calculated 22.9. GENERAL: Well-developed, well-nourished, well-hydrated 70-year-old female appearing stated age, pain is rated at about 3/10. HEENT: Normocephalic, atraumatic. Pupils equal, round, and responsive. She is wearing a mask in compliance with COVID-19 regulations. EXTREMITIES: Show no clubbing, no cyanosis, no edema. MUSCULOSKELETAL: Mild scoliosis is noted in the standing and seated position. Lower extremity strength is 5/5, intact to light touch from L1 through S2 dermatomes. Seated straight leg raising negative. Supine straight leg raising positive on the left. ASSESSMENT: 1. Symptomatic lumbar radiculopathy. 2. Severe and progressively worsening central canal [place] [address] PAIN MANAGEMENT CONSULTATION Name: ORLANDO IQBAL Room #: REG DENIS Huffman#: [id number] Admission: 01/02/21 Attend Phys: Mo Waller DO Discharge: Date of : 46 Report #: [id number] 3. Displacement of lumbar intervertebral disk with radiculopathy. 4. Lumbosacral spondylosis with radiculopathy. 5. Neural foraminal stenosis of lumbar spine. 6. Facet arthropathy of the lumbar spine. 7. Lumbar degeneration. 8. Chronic intractable pain. PLAN: 1. The patient returns today in followup visit to undergo lumbar epidural injection under fluoroscopic guidance. We have received authorization for the patient to undergo the procedure today. She has been advised of the risks and the benefits of this procedure. These risks include but are not necessarily limited to bleeding, bruising, infection, worsening pain, no relief of pain, also risk of temporary or permanent muscle weakness, temporary or permanent nerve damage, possible paralysis and . The patient states understood and wished to proceed. 2. No medication changes made at today's visit. The patient will continue current medical therapy as prior prescribed. 3. We plan to see the patient back in followup visit on an as needed basis for next in the series of epidural injections. We are hopeful the patient will see good and prolonged benefit with today's procedure. PROCEDURE NOTE DESCRIPTION OF PROCEDURE: L5-S1 parasagittal epidural steroid injection under fluoroscopic guidance. This is the third procedure of the first series that the patient is undergoing. After obtaining written consent, the patient was taken back to the fluoroscopy suite, placed in a prone position with pillow under the abdomen to decrease lumbar lordosis. The skin overlying the lumbosacral area was then prepped and draped in aseptic fashion. The L5-S1 vertebral interspace was then identified by AP fluoroscopy. The skin and subcutaneous tissue overlying the target site of injection was anesthetized with 3 mL 1% lidocaine. A 20-gauge 3.5 inch Tuohy needle was then advanced under fluoroscopic guidance towards the epidural space using a parasagittal approach. The epidural space was identified using loss of resistance to air technique. After negative aspiration for heme or cerebrospinal fluid, a total of 1 mL of Omnipaque was injected. A lumbar epidurogram was confirmed using both AP and lateral fluoroscopy. After negative aspiration for heme or cerebrospinal fluid, 5 mL of a solution containing 2 mL 40 mg per mL, 80 mg total triamcinolone along with 3 mL of lidocaine 1% was injected in increments. Contrast spread was noted in the posterior epidural space. The needle was then retracted approximately half way and needle tract flushed with 1 mL of Lidocaine. Needle was then removed. [address] [address] PAIN MANAGEMENT CONSULTATION Name: ORLANDO IQBAL [facility] [id number] Admission: 01/02/21 Attend Phys: Mo Waller DO Discharge: Date of : 46 Report #: [id number] There were no apparent sensory or motor deficits in the lower extremity following the procedure. A sterile bandage was placed over the injection site. The heart rate, pulse, oximetry and blood pressure were continuously monitored after the procedure. There were no apparent complications. The patient tolerated the procedure well and was carefully escorted to the recovery room in stable condition. There were no apparent complications. After meeting discharge criteria, the patient was then discharged home. <ELECTRONICALLY SIGNED> By: Mo Waller DO 01/08/21 1003 [id number] Mo Waller DO /nt
== END | disposition home or self-care (01) ==
LOC: PAIN 07:02
PROVIDERS: ATTEND Anesthesiology Pain Medicine
DX: M51.16 Intervertebral disc disorders with radiculopathy, lumbar region (principal); M47.27 Other spondylosis with radiculopathy, lumbosacral region; M47.26 Other spondylosis with radiculopathy, lumbar region; M48.061 Spinal stenosis, lumbar region without neurogenic claudication; G89.29 Other chronic pain; Z98.890 Other specified postprocedural states; Z79.899 Other long term (current) drug therapy

== ENCOUNTER → 2021-08-22 | Outpatient (CLI) | payer OTHER ==
[~2021-08-22] VITALS: Ht 157.5 cm; Wt 56.2 kg
[~2021-08-22] MED LIST changes: +DORZOLAMIDE 2%10 ML OPHTHALMIC; +METHOCARBAMOL500 M2 PO
[2021-08-22 10:47] VITALS: BP 145/85
--- NOTE | 2021-08-22 10:55 | NUR ---
Pain Clinic Assessment: 1. History of Osteoarthritis: BACK History of Rheumatoid Arthritis: Not Applicable 2. Height: 5 ft. 2 in. 157.5 cm. Weight: 124.0 lb. oz. 56.246 kg. Patient's BMI: 22.7 3. Vital Signs: BP: 145/85 Pulse: 81 Resp: 16 Temp: 02 Sat: 99 ECG Mon: 4. Pain Intensity: 3 5. Fall Risk: Dizziness: N Needs help standing or walking: N Fallen in the last 3 months: N Fall risk comments: 6. Patient on Blood Thinner: None 7. History of Hypertension: Y 8. Opioid Therapy greater than 6 weeks: N Opiate Contract Signed: 9. Risk Assessment Tool Provided: LOW RISK 0 10. Functional Assessment Tool: 11. Recreational Drug Use: Never Drug Type: Tobacco Use: Never Smoker Tobacco Type: Amount or Packs/day: How Many Years: Alcohol Use: Yes Frequency: Daily Quant: 1
--- NOTE | 2021-08-24 07:28 | HPC ---
[address] [address] PAIN MANAGEMENT CONSULTATION Name: ORLANDO IQBAL Room #: REG [facility] Lucy.#: [id number] Admission: 08/22/21 Attend Phys: Mo Waller DO Discharge: Date of : 46 Report #: [id number] THIS REPORT FOR: cc: Ely Huffman MD, Sarah M. MD Johnson, James E. DO ~ cc: Royce Terrazas MD DATE OF SERVICE: 08/22/2021 REFERRING PHYSICIAN: Dr. Royce Terrazas CHIEF COMPLAINT: Low back pain, left lower extremity pain with paresthesias. HISTORY OF PRESENT ILLNESS: As you know, the patient is a very pleasant 71-year-old female returning in followup visit to undergo next in the series of lumbar epidural injections under fluoroscopic guidance. The patient has done very well with previous epidural injections, the most recent providing 90% improvement in overall pain, lasting for nearly 5 months. She returns today in followup visit, requesting the next in the series to build on success of previous intervention. The patient denies injury or trauma that may have led to symptoms reoccurrence. She is very pleased with response to the initial treatment, returning today to undergo next in the series of lumbar epidural injections in hopes of gaining a similar analgesic benefit. ALLERGIES: No known drug allergies. CURRENT MEDICATIONS: ____, cholecalciferol, lactobacillus, fiber gummies, calcium carbonate, Arimidex, ibuprofen, and lisinopril. SOCIAL HISTORY: The patient denies tobacco, alcohol, IV or illicit drug use. She is unaccompanied today. IMAGING: No new imaging available. PQRS: The patient has known arthritic changes of lumbar spine, mildly in the bilateral hips. No rheumatoid arthritis, placing current pain intensity at 3/10. She is not a fall risk, has not had a fall in last 3 months. She is not on blood thinners, but is treated for hypertension. She is on no opioids and has a low opioid addiction potential based on assessment tool. Pain impact is 27/70, moderate interference of daily activity secondary to pain. PHYSICAL EXAMINATION: VITAL SIGNS: Blood pressure 145/85, pulse 81, respiratory rate 16 and unlabored. The patient is 99% on room air. Height 5 feet 2 inches tall, weight 124 pounds, BMI calculated 22.7. GENERAL: Well-developed, well-nourished, well-hydrated 71-year-[place] [address] PAIN MANAGEMENT CONSULTATION Name: ORLANDO IQBAL Room #: REG [facility]#: [id number] Admission: 08/22/21 Attend Phys: Mo Waller DO Discharge: Date of : 46 Report #: [id number] appears her stated age, pain today is rated at 3/10. HEENT: Normocephalic, atraumatic. Pupils equal, round. She is wearing a mask in compliance with COVID-19 regulations and hospital policy. EXTREMITIES: Show no clubbing, no cyanosis, no edema. MUSCULOSKELETAL: Lower extremity strength is symmetrical again today 5/5, intact to light touch from, L1 through S2 dermatomes. Seated straight leg raising negative. Supine straight leg raising positive on the left. Prashant's test is negative. There is palpatory tenderness over the paraspinal musculature of the lower thoracic upper lumbar and lower lumbar areas. No tender points, has mild scoliotic curvature. ASSESSMENT: 1. Chronic lumbar radiculopathy. 2. Severe and progressively worsening central canal stenosis of lumbar spine. 3. Displacement of lumbar intervertebral disk with radiculopathy. 4. Lumbosacral spondylosis with radiculopathy. 5. Neural foraminal stenosis of lumbar spine. 6. Facet arthropathy of lumbar spine. 7. Scoliosis. 8. Lumbar degeneration. 9. Chronic intractable pain. PLAN: 1. The patient returns today in followup visit, requesting to undergo lumbar epidural injection under fluoroscopic guidance. She is very pleased with response to previous injections and most recent giving an improvement in symptoms of greater than 90% for 5 months. She returns today requesting next in the series of epidural injections in hopes of building on success of previous intervention. The patient has been advised risks and benefits of the procedure, states understood and wished to proceed. 2. No medication changes made at today's visit. The patient will continue current medical therapy as prior prescribed. 3. The patient will follow up with our clinic on an as needed basis for the next in the series of lumbar epidural injections. We are once again hopeful the patient will see good and prolonged benefit with the injections provided today. PROCEDURE NOTE DESCRIPTION OF PROCEDURE: L5-S1 paramedian epidural steroid injection under fluoroscopic guidance. This is the first procedure of the second series that the patient is undergoing. After obtaining written consent, the patient was taken back to the fluoroscopy suite, placed in a prone position with pillow under the abdomen to decrease lumbar lordosis. The skin overlying the lumbosacral area was then prepped and [address] [address] PAIN MANAGEMENT CONSULTATION Name: ORLANDO IQBAL Room #: REG [facility] Huffman#: [id number] Admission: 08/22/21 Attend Phys: Mo Waller DO Discharge: Date of : 46 Report #: [id number] draped in aseptic fashion. The L5-S1 vertebral interspace was then identified by AP fluoroscopy. The skin and subcutaneous tissue overlying the target site of injection was anesthetized with 3 mL 1% lidocaine. A 20-gauge 3-1/2 inch Tuohy needle was then advanced under fluoroscopic guidance towards the epidural space using a paramedian approach. The epidural space was identified using loss of resistance to air technique. After negative aspiration for heme or cerebrospinal fluid, a total of 4 mL of Omnipaque was injected. A lumbar epidurogram was confirmed using both AP and lateral fluoroscopy. After negative aspiration for heme or cerebrospinal fluid, 5 mL of a solution containing 2 mL 40 mg per mL 80 mg total triamcinolone along with 3 mL of lidocaine 1% was injected in increments. Contrast spread was noted posterior epidural space. The needle was then retracted approximately half way and needle tract flushed with 1 mL of 1% lidocaine. Needle was then removed. There were no apparent sensory or motor deficits in the lower extremity following the procedure. A sterile bandage was placed over the injection site. The heart rate, pulse, oximetry and blood pressure were continuously monitored after the procedure. There were no apparent complications. The patient tolerated the procedure well and was carefully escorted to the recovery room in stable condition. There were no apparent complications. After meeting discharge criteria, the patient was then discharged home. <ELECTRONICALLY SIGNED> By: Mo Waller DO 08/24/21 0728 [id number] Mo Waller DO /chel
== END | disposition home or self-care (01) ==
LOC: PAIN 08:24
PROVIDERS: ATTEND Anesthesiology Pain Medicine
DX: M51.16 Intervertebral disc disorders with radiculopathy, lumbar region (principal); M47.27 Other spondylosis with radiculopathy, lumbosacral region; M47.26 Other spondylosis with radiculopathy, lumbar region; M48.061 Spinal stenosis, lumbar region without neurogenic claudication; M41.86 Other forms of scoliosis, lumbar region; I10 Essential (primary) hypertension; M19.90 Unspecified osteoarthritis, unspecified site; Z98.890 Other specified postprocedural states; Z79.899 Other long term (current) drug therapy